=== PATIENT | male | born 1955 | race American Indian/Alaskan Native ===

== ENCOUNTER 2021-11-20 07:08 | Outpatient (CLI) | payer MEDICARE ==
--- NOTE | 2021-11-20 09:22 | Ultrasound Report ---
ULTRASOUND ABDOMEN, COMPLETE INDICATION / CLINICAL INFORMATION: Z13.6. COMPARISON: None available. FINDINGS: PANCREAS: No significant abnormality. ABDOMINAL AORTA: No significant abnormality. IVC: No significant abnormality. LIVER: Liver is mildly enlarged measuring 17.5 cm in length. The liver is heterogeneous in echotextur e. Normal hepatopedal blood flow in the main portal vein. GALLBLADDER: Cholecystectomy. BILE DUCTS: No significant abnormality. Common bile duct measures 7 mm. KIDNEYS: Right: There is a 2.6 cm hypoechoic area in the mid right kidney. There are some internal ec hoes within this. This is not a simple cyst by ultrasound criteria. Left: No significant abnormality . SPLEEN: No significant abnormality. FREE FLUID: None. ADDITIONAL FINDINGS: None. IMPRESSION: 1. There is mild hepatomegaly. The liver is heterogeneous in echotexture suggesting fatty infiltratio n or hepatocellular disease. 2. There is a 2.6 cm hypodensity in the mid right kidney. This may represent a complex cyst. This may be a solid renal lesion. CT imaging without and with contrast is recommended to further evaluate. Signer Name: Dawson Silva MD Signed: 11/20/2021 9:18 AM Workstation Name: [id number]
== END 2021-11-20 07:09 | disposition home or self-care (01) ==
LOC: US 07:08
PROVIDERS: ATTEND Family Medicine
DX: N28.9 Disorder of kidney and ureter, unspecified (principal); R16.0 Hepatomegaly, not elsewhere classified
CPT/HCPCS: 76700